=== PATIENT | female | born 1965 ===

== ENCOUNTER 2017-07-28 10:59 | Outpatient (CLI) | payer BC ==
--- NOTE | 2017-07-28 16:20 | Ultrasound Report ---
TRANSABDOMINAL AND TRANSVAGINAL PELVIC ULTRASOUND: 07/28/17 10:59:00 CLINICAL: History of endometrial hyperplasia status post endometrial ablation in 2009. FINDINGS: Transabdominal and transvaginal pelvic ultrasound demonstrated a mildly enlarged uterus measuring 10.0 x 4.2 x 5.0 cm. Heterogeneous uterine echo pattern. A single anterior lower uterine segment fibroid is located intramural and measures 2.4 x 1.9 x 2.8 cm.A tiny volume of fluid in the uterine cavity and no measurable endometrium. The right ovary measures 3.1 x 2.1 x 2.1cm. The left ovary measures 4.1 x 3.1 x 2.8cm. A cyst of the left ovary measures 2.5 x 2.0 x 2.4 cm. No adnexal mass. Mild free fluid in the right adnexa. Normal urinary bladder. IMPRESSION: 1. A mildly enlarged fibroid uterus with a single 2.8 cm measurable fibroid. 2. No endometrial thickening. 3. Normal ovaries with a 2.5 cm follicle the left ovary.
== END 2017-07-28 11:00 | disposition home or self-care (01) ==
LOC: SPVWC 10:59
PROVIDERS: ATTEND Internal Medicine Hematology & Oncology
DX: D25.1 Intramural leiomyoma of uterus (principal); N83.202 Unspecified ovarian cyst, left side; N85.2 Hypertrophy of uterus; D05.11 Intraductal carcinoma in situ of right breast; Z98.890 Other specified postprocedural states
CPT/HCPCS: 76830; 76856